=== PATIENT | male | born 1975 | race Caucasian/White ===

== ENCOUNTER 2017-05-21 16:06 | Emergency (ER) | payer OTHER ==
[~2017-05-21] VITALS: Ht 175.3 cm; Wt 74.3 kg
[~2017-05-21 16:06] MED LIST: IBUP-1050 PO
[2017-05-21 16:08] VITALS: TEMP 36.8; Ht 175.3 cm; Wt 74.3 kg
[2017-05-21] MEDS ORDERED: CEFTRIAXONE SOD 350MG/ML 1 GM VIAL IM ONE (16:45)
[2017-05-21] MEDS ORDERED: SULFAMETHOXAZOLE/TRIMETHOPRIM DS 800/160MG TAB PO ONE (16:45)
[2017-05-21] MEDS ORDERED: IBUPROFEN 200 MG TAB PO STA (17:35)
[2017-05-21] MEDS ORDERED: ACETAMINOPHEN 500 MG TAB PO STA (17:35)
--- NOTE | 2017-05-21 17:45 | DIAGNOSTIC IMAGING REPORT ---
L EXTREMITY NONVASCULAR LIMITED CLINICAL HISTORY: 42 years-old Male presenting with LLE pain redness-? Foreign body. TECHNIQUE: Real-time grayscale Doppler ultrasound imaging of the left lower leg was performed for a focused evaluation at the site of clinical concern. Color Doppler ultrasound imaging was also performed. COMPARISON: None. FINDINGS: At the distal left lower leg in the medial portion at the site of clinical concern, patent vasculature evident. No subcutaneous edema. Normal sonographic appearance of the subcutaneous fat and musculature. No fluid collection. No sonographic evidence of foreign body. IMPRESSION: 1. No sonographic abnormality at the site of clinical concern. Electronically signed by: Joseph Rodriguez M.D. 05/21/2017 5:44 PM Dictated Date/Time: 05/21/2017 5:42 PM
--- NOTE | 2017-05-21 17:59 | EMERGENCY ROOM VISIT NOTE ---
History First contact with patient: 16:16 Chief Complaint: WOUND INFECTION Stated Complaint: INFECTION IN MY ANKLE Nursing Triage Summary: see triage note History of Present Illness The patient is a 42 year old male who presents to the Emergency Room with complaints of left ankle pain. The patient reports having an injury many years ago to the leg where he fell 3 wooden floor. He thinks that there may have been a splinter retained in the leg. The patient tried to take it out himself with a scalpel and treated his at home 2 weeks ago. He is now noticed redness, swelling and increased pain. Patient is unsure of his last tetanus shot. Review of Systems 6 system review negative. Please see pertinent positives in the history of present illness section. Past Medical/Surgical History Right ankle surgery in 2009 Social History Smoking Status: Current Every Day Smoker Alcohol Use: occasionally Marital Status: Occupation Status: employed Current/Historical Medications Scheduled Cephalexin Monohydrate (Keflex), 500 MG PO QID Ibuprofen (Advil), 600-800 MG PO Q6H Sulfa/Trimethoprim (Bactrim Ds 800MG/160MG), 1 TAB PO BID Scheduled PRN Hydrocodone/Acetaminophen 5MG/325MG ([place] 5MG/325MG), 1-2 TABLET PO Q4H PRN for Pain Physical Exam Vital Signs Date Time Temp Pulse Resp B/P (MAP) Pulse Ox O2 Delivery O2 Flow Rate FiO2 05/21/17 18:33 62 16 125/74 97 05/21/17 16:08 36.8 75 16 135/93 96 Room Air Physical Exam VITALS: Vitals are noted on the nurse's note and reviewed by myself. Vital signs stable. GENERAL: 42-year-old male, in no acute distress, nondiaphoretic, well-developed well-nourished. SKIN: Small 1 cm, superficial break in the skin noted to the left lower leg just medial to the tibia. Surrounding edema, erythema and warmth noted. DP pulse +2. HEAD: Normocephalic atraumatic. MUSCULOSKELETAL: Full dorsiflexion and plantar flexion of the left foot As noted above Strength 5/5 throughout. NEURO: Patient was alert and oriented to person place and time. Normal sensation to touch. No focal neurological deficits. Medical Decision & Procedures ER Provider Diagnostic Interpretation: Left ankle/foot x-ray IMPRESSION: No acute osseous injury or radiographic evidence of osteomyelitis. Electronically signed by: Joseph Rodriguez M.D. 05/21/2017 6:40 PM Dictated Date/Time: 05/21/2017 6:39 PM The status of this report is Signed. Draft = Not yet reviewed or approved by Radiologist. Signed = Reviewed and approved by Radiologist. <AttendingPhy></AttendingPhy> <FamilyPhy>No Doctor, Assigned</FamilyPhy> < PrimaryPhy>No Doctor, Assigned</PrimaryPhy> <UnitNumber>[id number]</UnitNumber> <VisitNumber>[id number]</VisitNumber> <PatientName>JOSEPH ARTIS</ PatientName> <DateOfBirth>1975</DateOfBirth> <Location>[facility]</Location> < ServiceDate>05/21/17</ServiceDate> <MNE>ESINDI</MNE> <OrderingPhy>Lorena Mohan PA-C</OrderingPhy> < IMPRESSION: No acute osseous injury of the left ankle or radiographic evidence of osteomyelitis. Electronically signed by: Joseph Rodriguez M.D. 05/21/2017 6:38 PM Dictated Date/Time: 05/21/2017 6:37 PM The status of this report is Signed. Draft = Not yet reviewed or approved by Radiologist. Signed = Reviewed and approved by Radiologist. <AttendingPhy></AttendingPhy> <FamilyPhy>No Doctor, Assigned</FamilyPhy> < PrimaryPhy>No Doctor, Assigned</PrimaryPhy> <UnitNumber>[id number]</UnitNumber> <VisitNumber>[id number]</VisitNumber> <PatientName>JOSEPH ARTIS</ PatientName> <DateOfBirth>1975</DateOfBirth> <Location>[facility]</Location> < ServiceDate>05/21/17</ServiceDate> <MNE>ESINDI</MNE> <OrderingPhy>Lorena Mohan PA-C</OrderingPhy> <OrderingPhyMNE>f rep ord mne</OrderingPhyMNE> < DictatingPhyMNE>f rep dict mne</DictatingPhyMNE> <CCListMNE>f rep ct mne</ CCListMNE> <AdmittingPhyMNE>f pt admit dr [facility]</AdmittingPhyMNE> <AttendingPhyMNE >f pt attend dr [facility]</AttendingPhyMNE> <ConsultingPhyMNE>f pt consult dr [facility]</ConsultingPhyMNE> <FamilyPhyMNE>f pt fam dr solis</FamilyPhyMNE> <OtherPhyMNE>f pt other dr sol[facility]</OtherPhyMNE> < PrimaryPhyMNE>f pt prim care dr sol[facility]</PrimaryPhyMNE> <ReferringPhyMNE>f pt referring dr sol[facility]</ReferringPhyMNE> Soft tissue ultrasound left lower extremity IMPRESSION: 1. No sonographic abnormality at the site of clinical concern. Electronically signed by: Joseph Rodriguez M.D. 05/21/2017 5:44 PM Dictated Date/Time: 05/21/2017 5:42 PM The status of this report is Signed. Draft = Not yet reviewed or approved by Radiologist. Signed = Reviewed and approved by Radiologist. <AttendingPhy></AttendingPhy> <FamilyPhy>No Doctor, Assigned</FamilyPhy> < PrimaryPhy>No Doctor, Assigned</PrimaryPhy> <UnitNumber>[id number]</UnitNumber> <VisitNumber>[id number]</VisitNumber> <PatientName>JOSEPH ARTIS</ PatientName> <DateOfBirth>1975</DateOfBirth> <Location>[facility]</Location> < ServiceDate>05/21/17</ServiceDate> <MNE>ESINDI</MNE> <OrderingPhy>Lorena Mohan PA-C</OrderingPhy> <OrderingPhyMNE>f rep ord dr sol[facility]</OrderingPhyMNE> < DictatingPhyMNE>f rep dict dr [facility]</DictatingPhyMNE> <CCListMNE>f rep ct mne</ CCListMNE> <AdmittingPhyMNE>f pt admit dr [facility]</AdmittingPhyMNE> <AttendingPhyMNE >f pt attend dr [facility]</AttendingPhyMNE> <ConsultingPhyMNE>f pt consult dr [facility]</ConsultingPhyMNE> <FamilyPhyMNE>f pt fam dr solis</FamilyPhyMNE> <OtherPhyMNE>f pt other dr [facility]</OtherPhyMNE> < PrimaryPhyMNE>f pt prim care dr [facility]</PrimaryPhyMNE> <ReferringPhyMNE>f pt referring dr [facility]</ReferringPhyMNE> Medications Administered Medications (Trade) Dose Ordered Sig/Aric Route Start Time Stop Time Status Last Admin Dose Admin Ceftriaxone Sodium (Rocephin Im) 1,000 mg NOW ONCE IM 05/21/17 16:45 05/21/17 16:46 DC 05/21/17 16:56 1,000 MG Trimethoprim/ Sulfamethoxazole (Septra Ds 800/ 160MG Tab) 1 tab NOW ONCE PO 05/21/17 16:45 05/21/17 16:46 DC 05/21/17 16:55 1 TAB Acetaminophen (Tylenol Tab) 1,000 mg NOW STAT PO 05/21/17 17:35 05/21/17 17:36 DC 05/21/17 17:43 1,000 MG Ibuprofen (Advil Tab) 800 mg NOW STAT PO 05/21/17 17:35 05/21/17 17:36 DC 05/21/17 17:44 800 MG Diphtheria/ Pertussis/Tetanus Vacc (Adacel Inj) 0.5 ml ONCE ONCE IM. 05/21/17 18:00 05/21/17 18:01 DC 05/21/17 18:22 0.5 ML Oxycodone HCl (Roxicodone Immediate Rel Tab) 5 mg NOW STAT PO 05/21/17 18:08 05/21/17 18:09 DC 05/21/17 18:20 5 MG ED Course The patient was seen and examined The patient was given Motrin 800 mg and Tylenol 1 g An ultrasound was performed The patient was given an Adacel injection He was given 1 dose of Rocephin 1 g IM We discussed his results. I also suggested x-rays. The patient was still having pain. He was medicated with oxycodone. The imaged results were discussed. He voiced understanding. We thoroughly discussed discharge instructions, he was comfortable being discharged home. Medical Decision Differential diagnosis: Abscess, cellulitis, foreign body, osteomyelitis This patient is a 42-year-old male that presents to the emergency department with left leg redness, swelling and pain after trying to remove a foreign body on his own. On exam, he did have mild cellulitis. No signs of abscess. I ordered an ultrasound to evaluate the patient for foreign body. No foreign body or abscess were noted. X-rays were performed. No signs of osteomyelitis. He is afebrile and otherwise nontoxic in appearance. I believe he is stable to be discharged home with antibiotics. He was given 1 dose of Rocephin in the emergency department. He was started on Keflex and Bactrim. I advised the patient to follow-up with his primary care physician within the next 24-48 hours for recheck, and return to the emergency department with worsening symptoms This chart was completed in part utilizing [employer] Speech Voice Recognition software. Attempts were made to minimize the grammatical errors, random word insertions, pronoun errors and incomplete sentences. Any formal questions or concerns about the content, text or information contained within the body of this dictation should be directly addressed to the provider for clarification. Impression Primary Impression: Cellulitis Departure Information Dispostion Home / Self-Care Condition GOOD Prescriptions Hydrocodone/Acetaminophen 5MG/325MG ([facility] 5MG/325MG) Tab 1-2 TABLET PO Q4H Y for Pain, #15 TAB For Initial Treatment Prov: Lorena Mohan PA-C 05/21/17 Cephalexin Monohydrate (Keflex) 500 Mg Cap 500 MG PO QID for 6 Days, #24 CAP Prov: Lorena Mohan PA-C 05/21/17 Sulfa/Trimethoprim (Bactrim Ds 800MG/160MG) Tab 1 TAB PO BID, #13 TAB Prov: Lorena Mohan PA-C 05/21/17 Referrals No Doctor, Assigned (PCP) Faheem Christensen III, CRNP Patient Instructions [facility] Additional Instructions You were evaluated in the emergency department for pain in the left leg. This is likely due to a soft skin infection called cellulitis. Please finish the ENTIRE course of antibiotics. Ibuprofen 600 mg every 6 hours [facility] [place] 1-2 tabs every 4 hours for severe pain. Do not drink alcohol or drive while taking this medication. This may be taken with ibuprofen, but avoid Tylenol. Please continue Epsom salts once a day Clean the area with soap and water twice daily Keep it covered while working. Please try to leave it open to air if possible at night. Please follow-up with your primary care physician or return to the emergency department in 24-48 hours to have this rechecked. Please do not hesitate to return sooner to the ED with any new, worsening or concerning symptoms; especially, red streaking up the leg, worsening pain, swelling or fever It was a pleasure participating in your care today Work Instructions Return To Work: 2 days
[2017-05-21] MEDS ORDERED: DIPHTHERIA/TETANUS/PERTUSSIS 0.5 ML SYR/VIAL IM. ONE (18:00)
[2017-05-21] MEDS ORDERED: OXYCODONE HCL IR 5 MG TAB (IMMEDIATE RELEASE) PO STA (18:08)
[2017-05-21 18:33] VITALS: BP 125/74; PULSE 62; O2SAT 97
[2017-05-21] MEDS ORDERED: HYDR-5688 PO (18:35)
[2017-05-21] MEDS ORDERED: CEPH500C PO (18:35)
[2017-05-21] MEDS ORDERED: SULF800T23 PO (18:35)
--- NOTE | 2017-05-21 18:39 | DIAGNOSTIC IMAGING REPORT ---
L ANKLE MIN 3 VIEWS ROUTINE CLINICAL HISTORY: 42 years-old Male presenting with ?osteo pain swelling R leg/ankle foot. TECHNIQUE: Frontal, mortise, and lateral views of the left ankle were obtained. COMPARISON: None. FINDINGS: Ankle mortise intact. No osseous erosion or periosteal reaction. No acute fracture or malalignment. No advanced degenerative change. No radiographic soft tissue abnormality. IMPRESSION: No acute osseous injury of the left ankle or radiographic evidence of osteomyelitis. Electronically signed by: Joseph Rodriguez M.D. 05/21/2017 6:38 PM Dictated Date/Time: 05/21/2017 6:37 PM
--- NOTE | 2017-05-21 18:42 | DIAGNOSTIC IMAGING REPORT ---
L FOOT MIN 3 VIEWS ROUTINE CLINICAL HISTORY: 42 years-old Male presenting with ?osteo pain swelling R leg/ankle foot. TECHNIQUE: Frontal, oblique, and lateral views of the left foot were obtained. COMPARISON: None. FINDINGS: No acute fracture or malalignment. Bone island suspected in the anterior process of the talus. No osseous erosion or periosteal reaction. No advanced degenerative change. No radiographic soft tissue abnormality. IMPRESSION: No acute osseous injury or radiographic evidence of osteomyelitis. Electronically signed by: Joseph Rodriguez M.D. 05/21/2017 6:40 PM Dictated Date/Time: 05/21/2017 6:39 PM
== END 2017-05-21 18:52 | disposition home or self-care (01) ==
LOC: C.EDB 16:07 → C.EDD 18:52
DX: L03.116 Cellulitis of left lower limb (principal); F17.200 Nicotine dependence, unspecified, uncomplicated; Z23 Encounter for immunization